=== PATIENT | female | born 1960 | race Caucasian/White ===

== ENCOUNTER 2024-07-21 14:32 | Observation (INO) | payer OTHER ==
[2024-07-21 15:28] LABS: HEMATOCRIT 40.9 % (32.4-45.2); HEMOGLOBIN 13.8 G/dL (10.7-15.3); MCH 35.4 pg (25.7-33.7); MCHC 33.7 g/dl (32.0-36.0); MEAN CELL VOLUME 105.1 fl (80-96); MEAN PLT VOLUME 8.9 fl (7.5-11.1); PLATELET COUNT 282.6 10^3/uL (134-434); RBC 3.89 10^6/uL (3.60-5.2); RDW 12.6 % (11.6-15.6); WHITE BLOOD COUNT 7.6 10^3/uL (4.0-10.8)
[2024-07-21 15:29] LABS: INR 0.88 (0.83-1.09); PROTHROMBIN TIME (PATIENT) 10.1 SEC (9.7-13.0)
[2024-07-21 15:32] LABS: ACTIVATED PTT 30.6 SECONDS (25.2-36.5)
[2024-07-21 15:32] LABS: PLATELET ESTIMATE ADEQUATE
[2024-07-21] MEDS ORDERED: dilTIAZem HCL 125 MG/25 ML - 25 ML VIAL ONE ×3 (15:32→18:48)
[2024-07-21 15:35] LABS: ALBUMIN 4.5 g/dl (3.4-5.0); BILIRUBIN,TOTAL 0.5 mg/dl (0.2-1); CALCIUM 9.8 mg/dl (8.5-10.1); POTASSIUM 3.8 mmol/L (3.5-5.1); TOT PROT 7.5 g/dl (6.4-8.2)
[2024-07-21] MEDS: dilTIAZem HCL 50 MG/10 ML - 10 ML VIAL IVPUSH ONE ×2 (15:36→17:20)
[2024-07-21 15:44] LABS: EPITHELIAL CELLS 0-5 /hpf
[2024-07-21] MEDS: dilTIAZem HCL 30 MG TABLET PO ONE (16:00)
[2024-07-21] MEDS ORDERED: dilTIAZem HCL 30 MG TABLET ONE (16:01)
[2024-07-21] MEDS ORDERED: DOXYCYCLINE HYCLATE 100 MG CAPSULE PO ONE (18:48)
[2024-07-21] MEDS ORDERED: dilTIAZem HCL 50 MG/10 ML - 10 ML VIAL ONE (18:48)
[2024-07-21] MEDS: DOXYCYCLINE HYCLATE 100 MG CAPSULE PO ONE (19:05)
[2024-07-21] MEDS: dilTIAZem HCL 30 MG TABLET PO SCH (21:47)
[2024-07-21] MEDS: APIXABAN 5 MG TABLET PO SCH (21:47)
[2024-07-21] MEDS ORDERED: dilTIAZem HCL 30 MG TABLET PO SCH (22:00)
[2024-07-21 22:39] VITALS: RESP 18
[2024-07-21 22:43] VITALS: BMI 27.9
[2024-07-22 08:58] LABS: CALCIUM 9.2 mg/dl (8.5-10.1); CREATININE 0.8 mg/dl (0.6-1.3)
[2024-07-22 09:41] LABS: EOS % 4.7 % (0-4.5); HEMATOCRIT 38.9 % (32.4-45.2); HEMOGLOBIN 13.1 GM/dL (10.7-15.3); LYMPH % 27.3 % (8-40); MCH 35.3 pg (25.7-33.7); MCHC 33.7 g/dl (32.0-36.0); MEAN CELL VOLUME 104.7 fl (80-96); MEAN PLT VOLUME 8.5 fl (7.5-11.1); MONO % 9.7 % (3.8-10.2); NEUT % 57.3 % (42.8-82.8); PLATELET COUNT 261 10^3/uL (134-434); RBC 3.72 M/mm3 (3.60-5.2); RDW 12.7 % (11.6-15.6); WHITE BLOOD COUNT 5.8 K/mm3 (4.0-10.0)
[2024-07-22 18:21] VITALS: BP 128/86; PULSE 80; TEMP 97.7
== END 2024-07-22 19:27 | disposition home or self-care (01) ==
LOC: FER 14:32 → FM/S 21:17 → INTOOBSV 21:17
PROVIDERS: ADMIT Internal Medicine
PROC: 3E033GC Introduction of Other Therapeutic Substance into Peripheral Vein, Percutaneous Approach (ICD-10-PCS; principal; 2024-07-21)
PROC: 3E0337Z Introduction of Electrolytic and Water Balance Substance into Peripheral Vein, Percutaneous Approach (ICD-10-PCS; 2024-07-21)
DX: I48.91 Unspecified atrial fibrillation (principal); I10 Essential (primary) hypertension; E78.5 Hyperlipidemia, unspecified; J44.9 Chronic obstructive pulmonary disease, unspecified; Z87.891 Personal history of nicotine dependence; Z88.8 Allergy status to other drugs, medicaments and biological substances
CPT/HCPCS: 36415; 71045-TC-FY; 80048; 80053; 80061; 81003; 81015; 83735; 84443; 84484; 85025; 85027; 85610; 85730; 86618; 93005; 93010; 93306-TC; 99291; G0378